=== PATIENT | female | born 1955 | race Caucasian/White ===

== ENCOUNTER → 2018-04-27 | Outpatient (CLI) | payer BC | LOC: FIMAGING 10:31 | PROVIDERS: ATTEND Physician Assistant | DX: J40 Bronchitis, not specified as acute or chronic (principal) ==

== ENCOUNTER → 2018-04-28 | Outpatient (CLI) | payer BC | LOC: FIMAGING 09:54 | PROVIDERS: ATTEND Physician Assistant Medical | DX: R10.13 Epigastric pain (principal); R19.06 Epigastric swelling, mass or lump ==

== ENCOUNTER → 2018-06-26 | Outpatient (CLI) | payer BC | LOC: FIMAGING 11:39 | PROVIDERS: ATTEND Midwife | DX: Z12.31 Encounter for screening mammogram for malignant neoplasm of breast (principal) ==